=== PATIENT | male | born 1945 | race Caucasian/White ===

== ENCOUNTER → 2016-02-20 | Outpatient (CLI) | payer OTHER ==
[~2016-02-20] MED LIST: ASPIR LOW81 MG PO; ASPIRIN ADULT L81 MG PO; ASPIRIN325 M2 PO; CIPRO500 MG PO; D-1000 185 MG-11 TAB PO; FLAGYL500 MG PO; FLOMAX0.4 MG PO; LISINOPRIL10 M1 PO; LISINOPRIL40 MG PO; LOPRESSOR25 MG PO; METFORMIN850 MG PO; METOPROLOL TART50 M1 PO; ZOCOR40 MG PO
== END | disposition home or self-care (01) ==
LOC: CT 10:47
DX: L97.529 Non-pressure chronic ulcer of other part of left foot with unspecified severity (principal); M19.072 Primary osteoarthritis, left ankle and foot; M79.89 Other specified soft tissue disorders

== ENCOUNTER → 2016-05-18 | Day surgery (SDC) | payer OTHER ==
[2016-05-14 11:23] LABS: INTERNATIONAL NORM RATIO 0.9 (2.0-3.5); PROTHROMBIN TIME 9.8 SECONDS (9.0-12.4)
[2016-05-18] VITALS (7 sets, daily range): BP systolic 132–161; BP diastolic 60–84
[~2016-05-18] VITALS: Ht 180.3 cm; Wt 97.5 kg
[~2016-05-18] MED LIST changes: +DOXYCYCLINE100 MG PO; +NORCO 5-325 TA1 EACH PO
--- NOTE | ~2016-05-18 | O ---
[place], [place] OPERATIVE NOTE NAME: DESMONDJOSERASHAWN UNIT #: [id number] ROOM: DOCTOR: MELITON PEACE III, DPM BIRTHDATE: [birth year] DOS: 05/18/2016 SURGEON: Meliton Peace DPM ANESTHESIA: General. TAPE RECORDER MECHANIC: Chadwick Anguiano DPM PREOPERATIVE DIAGNOSES: 1. Equinus contracture, left leg. 2. Hammertoe contracture, left third digit. 3. Joint contracture, left third digit. POSTOPERATIVE DIAGNOSES: 1. Equinus contracture, left leg. 2. Hammertoe contracture, left third digit. 3. Joint contracture, left third digit. PROCEDURES: 1. Open gastrocnemius recession, left. 2. PIPJ arthroplasty, left third digit. 3. Extensor tenotomy, left third digit. HEMOSTASIS: Thigh tourniquet was in place at 300 mmHg. Please refer to nursing note for total time of inflation. ESTIMATED BLOOD LOSS: None. MATERIALS: One 0.62 K-wire. INJECTABLES: Approximately 30 mL of 0.5% Marcaine plain was injected in a local infiltrative ankle block type at the conclusion of the case as well as a proximal block above the level of the gastroc aponeurosis. FINDINGS: Consistent with preoperative diagnoses. COMPLICATIONS: None. HISTORY OF PRESENT ILLNESS: This is a 70-year-old male who was referred to me for surgical consultation for a recurrent ulceration sub left third metatarsal head. The patient is diabetic. The patient did have the clearance prior to surgery from medical standpoint. We discussed the options with the patient preoperatively. The patient continued to ulcerate off and on underneath the third metatarsal head of his left foot. We have tried offloading measures on the walking boot as well as diabetic shoes and inserts, and again the patient's underlying deformity needed to be addressed. We discussed the conservative as well as surgical treatment options with the patient. After discussion of the options, the patient wished to move forward with surgery. The patient did have a gastroc equinus as well as a hammertoe of his left third digit that was causing retrograde buckling and increased pressure underneath the third [place], [place] OPERATIVE NOTE NAME: AJITHRASHAWN UNIT #: [id number] ROOM: DOCTOR: NATA SIDDIQUI DPMMELITON BIRTHDATE: [birth year] metatarsal head. We discussed the options with the patient. I discussed gastroc release as well as hammertoe correction which I feel would be help alleviate his pain as well as recurrent ulceration to this area. The patient was in agreement. All risks, benefits, complications, procedures, alternatives were discussed and all questions were answered to his apparent satisfaction. The pre, james, postoperative course was discussed as well. The patient could not have an MRI preoperatively, therefore a CT was ordered which did not show any signs of osteomyelitis. He also had preoperative blood work which did not show any signs of elevated inflammatory markers. He also had preoperative vascular studies which showed adequate flow for healing to the left foot. PHYSICAL EXAMINATION: VASCULAR: DP and PT pulses were barely palpable, CFT was within normal limits, minimal edema. DERMATOLOGY: The patient had a healed ulceration in sub-third metatarsal head of the left foot. No signs of infection or inflammation. He had some localized bursitis appreciated at the dorsal PIPJ of his left third digit, where a hammertoe contracture was appreciated. NEUROLOGY: Decreased protective sensation. ORTHOPEDIC: The patient has a prominent third metatarsal head to the left foot, which appears to be secondary to retrograde buckling of his left third digit hammertoe contracture. He also has an equinus contracture appreciated as well. Also has extensor tendon to the left third digit appears to be taut as well. PROCEDURE IN DETAIL: The patient was brought to the operating room and laid on the table in supine position. His foot was prepped and draped in the usual sterile fashion. Pneumatic compression device was placed on the contralateral limb for DVT prophylaxis. Preoperative antibiotics were administered per hospital protocol. My attention was directed to the posterior medial aspect of his left leg, where a 4 cm incision was outlined overlying the gastroc aponeurosis. This was at a point jail between the distance of the proximal extent of Kager triangle and the medial head of the gastrocnemius. This led to junction of the medial and posterior thirds of the leg. A skin incision was created and dissection was carried through the skin as well as subcutaneous tissue with both sharp as well as blunt dissection. [employer] retractors were used to separate soft tissues, so that the paratenon could be adequately visualized. With all neurovascular structures retracted, a linear incision was created through the paratenon exposing the gastroc aponeurosis. At this time, we then proceeded to perform a transverse incision through the gastroc aponeurosis. Full release was performed as gentle dorsiflexion was placed at the level of the ankle. At this time, we then proceeded to close the paratenon with 0 Vicryl followed by subcutaneous closure with 0 Vicryl and skin closure with 3-0 Prolene. At this time, we then directed our attention to the left third digit, where again a contracture was appreciated at the level of the proximal interphalangeal joint. The extensor tendon to the left third digit appeared to be taut and at the level of metatarsophalangeal joint, a percutaneous tenotomy was performed of the tendon as well as of the capsule of the metatarsophalangeal joint in a percutaneous manner. The digit appeared to be in more of a rectus alignment; however, there [place], [place] OPERATIVE NOTE NAME: RASHAWN CANSECO UNIT #: [id number] ROOM: DOCTOR: MELITON PEACE III, DPM BIRTHDATE: [birth year] still appeared to have a contracture at the level of the proximal interphalangeal joint. At this time, we then made a double elliptical incision around the proximal interphalangeal joint. Skin was excised exposing the capsule as well as the tendon at the level of the proximal interphalangeal joint, a transverse incision was made through the tendon reflecting this both distally as well as proximally exposing the capsule. At this time, we then performed a capsulotomy of the proximal interphalangeal joint exposing the cartilage of the PIPJ. At this time, using a bone cutting forceps, the head of the proximal phalanx was removed and sent for biopsy. At this time, we then proceeded to place a K-wire down the length of the digit, traction in both distal interphalangeal joint as well as proximal interphalangeal joint. We felt then it was in the basis of best interest to pin across the MTPJ for added stability and to allow for appropriate healing and prevention of his ulceration a alf. Therefore, the pin was extended almost to the base of the third metatarsal. Proper position was confirmed in a triplane fluoroscopy. At this time, we then proceeded to reapproximate the extensor tendon at the level of the proximal interphalangeal joint with 2-0 Vicryl followed by skin closure with 4-0 Prolene. Prior to application of his dressing, an approximately 30 mL of 0.5% Marcaine plain was injected in a local ankle block type fashion as well as in a proximal fashion above the level of the gastrocnemius release. Tourniquet was deflated and normal capillary refill time returned to all digits. The patient tolerated the procedure well. A well-padded surgical dressing was then applied. The patient left the operating room with neurovascular status intact and vital signs stable. Prognosis for healing is good. We will follow up in the office next week. He will be discharged to home with an antibiotic as well as pain medication. We will also restart his aspirin therapy for DVT prophylaxis. MELITON PEACE III, DPM CM:OPRECORD:OPERATIVE NOTE 1000 [id number] MELITON PEACE III, DPM 05/26/16 1318 interface
== END | disposition home or self-care (01) ==
LOC: SDC 05-11 11:00
PROVIDERS: Podiatrist Foot & Ankle Surgery
DX: M21.6X2 Other acquired deformities of left foot (principal); M20.42 Other hammer toe(s) (acquired), left foot; M24.575 Contracture, left foot; I10 Essential (primary) hypertension; E11.9 Type 2 diabetes mellitus without complications; Z86.73 Personal history of transient ischemic attack (TIA), and cerebral infarction without residual deficits; I34.1 Nonrheumatic mitral (valve) prolapse; I25.10 Atherosclerotic heart disease of native coronary artery without angina pectoris; I50.42 Chronic combined systolic (congestive) and diastolic (congestive) heart failure; Z95.0 Presence of cardiac pacemaker; Z82.3 Family history of stroke; Z80.9 Family history of malignant neoplasm, unspecified; Z96.653 Presence of artificial knee joint, bilateral; Z87.891 Personal history of nicotine dependence; E78.2 Mixed hyperlipidemia

== ENCOUNTER 2016-06-16 15:54 | Inpatient (IN) | payer OTHER ==
[~2016-06-16] VITALS: Ht 180.3 cm; Wt 92.8 kg
[2016-06-16 15:57] VITALS: BP 153/90
[2016-06-16 16:23] LABS: BASO % 0.5 % (0.0-1.0); EOS # 0.2 10*3/uL (0.0-0.4); HEMATOCRIT 40.1 % (42.0-52.0); LYMPH # 1.7 10*3/uL (1.3-4.4); LYMPH % 22.7 % (27.0-41.0); MEAN CELL VOLUME 93.7 fl (80.0-94.0); MEAN CORPUSCULAR HGB 32.7 pg (27.0-31.0); MEAN CORPUSCULAR HGB CONC 34.9 g/dl (33.0-37.0); MEAN PLATELET VOLUME 10.3 fl (9.6-12.3); MONO # 0.6 10*3/uL (0.1-1.0); MONO % 7.8 % (3.0-9.0); NEUT # 5.1 10*3/uL (2.3-7.9); NEUT % 66.5 % (47.0-73.0); PLATELET COUNT AUTOMATED 207 10*3/uL (130-400); RED BLOOD COUNT 4.28 10*6/uL (4.50-5.90); RED CELL DISTRI WIDTH 13.6 % (0-14.5); WHITE BLOOD COUNT 7.7 10*3/uL (4.8-10.8)
[2016-06-16 16:33] LABS: PROTHROMBIN TIME 10.2 SECONDS (9.0-12.4)
[2016-06-16 16:38] LABS: ALBUMIN 3.8 gm/dl (3.1-4.5); ALKALINE PHOSPHATASE 85 U/L (45-117); BILIRUBIN, TOTAL 0.5 mg/dl (0.2-1.0); BUN 13 mg/dl (7-24); CARBON DIOXIDE 24 mmol/L (21-32); CHLORIDE 102 mmol/L (98-107); CPK 151 U/L (39-308); EST GLOM FILT AFRICAN AMERICAN > 60 ml/min; GLUCOSE 153 mg/dL (65-99); POTASSIUM 4.2 mmol/L (3.5-5.1); SGOT/AST 26 IU/L (3-35); SGPT/ALT 32 U/L (12-78); SODIUM 141 mmol/L (136-145); TOTAL PROTEIN 7.3 gm/dL (6.4-8.2)
[2016-06-16 16:40] LABS: C-REACTIVE PROTEIN < 0.29 MG/DL (0-0.3); TROPONIN I < 0.015 ng/ml (<0.045)
[2016-06-16 17:45] VITALS: BP 125/89
[2016-06-16 18:10] LABS: CKMB 2.8 ng/ml (0.5-3.6); CPK 145 U/L (39-308)
[2016-06-16 18:11] LABS: TROPONIN I < 0.015 ng/ml (<0.045)
[2016-06-16 19:00] VITALS: BP 145/73
[2016-06-16 20:00] VITALS: BP 152/72
[2016-06-17 00:21] VITALS: BP 126/69
[2016-06-17 00:39] LABS: CKMB 2.7 ng/ml (0.5-3.6); CPK 142 U/L (39-308)
[2016-06-17 00:40] LABS: TROPONIN I < 0.015 ng/ml (<0.045)
[2016-06-17 05:58] LABS: BASO % 0.7 % (0.0-1.0); EOS # 0.2 10*3/uL (0.0-0.4); EOS % 4.1 % (1.0-4.0); HEMATOCRIT 38.9 % (42.0-52.0); LYMPH # 2.1 10*3/uL (1.3-4.4); LYMPH % 35.5 % (27.0-41.0); MEAN CELL VOLUME 95.8 fl (80.0-94.0); MEAN CORPUSCULAR HGB CONC 33.4 g/dl (33.0-37.0); MEAN PLATELET VOLUME 10.4 fl (9.6-12.3); MONO # 0.5 10*3/uL (0.1-1.0); MONO % 8.7 % (3.0-9.0); NEUT # 2.9 10*3/uL (2.3-7.9); NEUT % 50.3 % (47.0-73.0); PLATELET COUNT AUTOMATED 178 10*3/uL (130-400); RED BLOOD COUNT 4.06 10*6/uL (4.50-5.90); RED CELL DISTRI WIDTH 13.7 % (0-14.5); WHITE BLOOD COUNT 5.8 10*3/uL (4.8-10.8)
[2016-06-17 06:09] LABS: CKMB 2.5 ng/ml (0.5-3.6); CPK 132 U/L (39-308)
[2016-06-17 06:22] LABS: TROPONIN I < 0.015 ng/ml (<0.045)
[2016-06-17 06:28] LABS: BUN 14 mg/dl (7-24); CARBON DIOXIDE 27 mmol/L (21-32); CHLORIDE 106 mmol/L (98-107); EST GLOM FILT AFRICAN AMERICAN > 60 ml/min; GLUCOSE 127 mg/dL (65-99); MAGNESIUM 2.2 mg/dL (1.5-2.1); POTASSIUM 4.5 mmol/L (3.5-5.1); SODIUM 141 mmol/L (136-145)
[2016-06-17 06:47] LABS: PROTHROMBIN TIME 10.4 SECONDS (9.0-12.4)
[2016-06-17 08:00] VITALS: BP 132/70
== END 2016-06-17 13:46 | disposition home or self-care (01) | DRG 312 ==
LOC: ED 15:54 → EDHOLD 17:20 → 5E 17:46
PROVIDERS: Family Medicine; Student in an Organized Health Care Education/Training Program
DX: I95.1 Orthostatic hypotension (principal); I50.42 Chronic combined systolic (congestive) and diastolic (congestive) heart failure; I11.0 Hypertensive heart disease with heart failure; E11.9 Type 2 diabetes mellitus without complications; I25.10 Atherosclerotic heart disease of native coronary artery without angina pectoris; R00.0 Tachycardia, unspecified; E66.9 Obesity, unspecified; E78.5 Hyperlipidemia, unspecified; Z96.653 Presence of artificial knee joint, bilateral; Z87.891 Personal history of nicotine dependence; Z79.84 Long term (current) use of oral hypoglycemic drugs; Z79.82 Long term (current) use of aspirin; Z79.899 Other long term (current) drug therapy; Z86.73 Personal history of transient ischemic attack (TIA), and cerebral infarction without residual deficits; Z68.29 Body mass index [BMI] 29.0-29.9, adult; Z90.49 Acquired absence of other specified parts of digestive tract; Z95.0 Presence of cardiac pacemaker; Z80.42 Family history of malignant neoplasm of prostate; Z82.3 Family history of stroke

== ENCOUNTER → 2017-11-12 | Outpatient (CLI) | payer OTHER ==
[~2017-11-12] MED LIST changes: -ASPIRIN ADULT L81 MG PO; +ASPIRIN325 MG PO; +FINASTERIDE5 M1 PO; +GLIPIZIDE5 MG PO; +METOPROLOL25 MG PO; +ZESTRIL20 MG PO
== END | disposition home or self-care (01) ==
LOC: LAB 10:50
DX: R97.20 Elevated prostate specific antigen [PSA] (principal)

== ENCOUNTER → 2018-01-17 | Outpatient (CLI) | payer OTHER | END | disposition home or self-care (01) | LOC: LAB 10:37 | DX: R97.20 Elevated prostate specific antigen [PSA] (principal) ==

== ENCOUNTER → 2018-07-17 | Outpatient (CLI) | payer OTHER | END | disposition home or self-care (01) | LOC: LAB 10:04 | DX: R97.20 Elevated prostate specific antigen [PSA] (principal) ==

== ENCOUNTER → 2019-03-04 | Outpatient (CLI) | payer MEDICARE ==
[~2019-03-04] MED LIST changes: +METFORMIN HYD1000 MG PO; +ONE-TABLET-DAI1 EACH PO; +VITAMIN D325 MCG PO
== END | disposition home or self-care (01) ==
LOC: LAB 08:53
DX: R97.20 Elevated prostate specific antigen [PSA] (principal)

== ENCOUNTER 2019-03-23 17:15 | Inpatient (IN) | payer MEDICARE ==
[~2019-03-23] VITALS: Ht 180.3 cm; Wt 94.1 kg
[~2019-03-23 17:15] MED LIST changes: -METFORMIN HYD1000 MG PO; -ONE-TABLET-DAI1 EACH PO; -VITAMIN D325 MCG PO
[2019-03-23 17:18] VITALS: BP 182/81
[2019-03-23 17:35] LABS: BASO % 0.4 % (0.0-1.0); EOS # 0.3 10*3/uL (0.0-0.4); EOS % 3.3 % (1.0-4.0); HEMATOCRIT 42.4 % (42.0-52.0); HEMOGLOBIN 14.3 g/dl (14.0-18.0); LYMPH # 2.1 10*3/uL (1.3-4.4); LYMPH % 27.5 % (27.0-41.0); MEAN CORPUSCULAR HGB 33.7 pg (27.0-31.0); MEAN CORPUSCULAR HGB CONC 33.7 g/dl (33.0-37.0); MEAN PLATELET VOLUME 10.6 fl (9.6-12.3); MONO # 0.6 10*3/uL (0.1-1.0); MONO % 8.6 % (3.0-9.0); NEUT # 4.5 10*3/uL (2.3-7.9); NEUT % 59.7 % (47.0-73.0); PLATELET COUNT AUTOMATED 236 10*3/uL (130-400); RED BLOOD COUNT 4.24 10*6/uL (4.50-5.90); RED CELL DISTRI WIDTH 13.6 % (0-14.5); WHITE BLOOD COUNT 7.5 10*3/uL (4.8-10.8)
[2019-03-23 17:45] LABS: ACT PARTIAL THROMBO TIME 27.3 SECONDS (20.0-32.1); INTERNATIONAL NORM RATIO 0.9 (2.0-3.5)
[2019-03-23 17:52] LABS: ALBUMIN 4.2 gm/dl (3.1-4.5); ALKALINE PHOSPHATASE 69 U/L (45-117); BUN 16 mg/dl (7-24); CHLORIDE 104 mmol/L (98-107); CREATININE 1.16 mg/dL (0.70-1.30); SGOT/AST 23 IU/L (3-35); SGPT/ALT 33 U/L (12-78); SODIUM 138 mmol/L (136-145); TOTAL PROTEIN 7.8 gm/dL (6.4-8.2)
[2019-03-23 18:06] LABS: TROPONIN I < 0.015 ng/ml (<0.045)
[2019-03-23 18:30] VITALS: BP 162/60
[2019-03-23 19:29] VITALS: BP 140/76
[2019-03-23 20:26] VITALS: BP 147/73
--- NOTE | 2019-03-23 21:56 | NUR ---
REPORT FROM PRIYA AT THIS TIME
--- NOTE | 2019-03-23 22:30 | NUR ---
A 73, admitted to , under the services of MINA Chen DO with a diagnosis of CHEST PAIN. Chief complaint is CHEST PAIN. Patient arrived via stretcher from ER. Monitor applied. Initial assessment completed. Vital signs taken and recorded. MINA CHEN DO notified of admission to the unit. Orders received. See assessment for past medical history, medications and allergies. Patient and/or family oriented to unit. [facility] visitation policy reviewed. Clothing/patient valuable form completed. CALEB TAM
[2019-03-23] MEDS ORDERED: METFORMIN HYD1000 MG PO (22:47)
[2019-03-23] MEDS ORDERED: VITAMIN D325 MCG PO (22:49)
[2019-03-23] MEDS ORDERED: ONE-TABLET-DAI1 EACH PO (22:50)
--- NOTE | 2019-03-23 22:50 | NUR ---
MED REC COMPLETED WITH PATIENT ALERT AND ORIENTED TO PERSON PLACE AND TIME
--- NOTE | 2019-03-23 22:53 | NUR ---
DR BRIONES AWARE OF ORTHOS, MED REC BEING UP TO DATE, AND PATIENT WANTING TO BE A FULL CODE.
--- NOTE | 2019-03-23 22:58 | NUR ---
ORTHOS- SUPINE- 177/79 HR 60 SITTING- 161/85 HR 60 STANDING- 180/96 HR 81 PATIENT SYMPTOMATIC
[2019-03-23 23:00] VITALS: BP 177/79
--- NOTE | 2019-03-23 23:24 | NUR ---
DR VILLALOBOS ANSWERING SERVICE AWARE OF CONSULT
[2019-03-24] VITALS: BP 138/87
--- NOTE | 2019-03-24 04:35 | NUR ---
DR TOLBERT AWARE OF PATIENT C/O PRESSURE AND UNABLE TO URINATE. BLADDER SCANNED FOR >947 CC. STATES TO STRAIGHT CATH PATIENT
--- NOTE | 2019-03-24 04:52 | NUR ---
PATIENT STRAIGHT CATHED FOR 1,000 CC OF CLEAR YELLOW URINE. PATIENT VERBALIZED RELIEF OF PRESSURE. PATIENT TOLERATED WELL.
[2019-03-24 07:18] LABS: BASO % 0.6 % (0.0-1.0); EOS # 0.2 10*3/uL (0.0-0.4); HEMATOCRIT 40.1 % (42.0-52.0); HEMOGLOBIN 13.3 g/dl (14.0-18.0); LYMPH # 1.6 10*3/uL (1.3-4.4); LYMPH % 21.6 % (27.0-41.0); MEAN CELL VOLUME 99.5 fl (80.0-94.0); MEAN CORPUSCULAR HGB CONC 33.2 g/dl (33.0-37.0); MEAN PLATELET VOLUME 10.3 fl (9.6-12.3); MONO # 0.6 10*3/uL (0.1-1.0); MONO % 8.4 % (3.0-9.0); NEUT # 4.8 10*3/uL (2.3-7.9); PLATELET COUNT AUTOMATED 197 10*3/uL (130-400); RED BLOOD COUNT 4.03 10*6/uL (4.50-5.90); RED CELL DISTRI WIDTH 13.5 % (0-14.5); WHITE BLOOD COUNT 7.2 10*3/uL (4.8-10.8)
[2019-03-24 07:48] LABS: BUN 14 mg/dl (7-24); CHLORIDE 106 mmol/L (98-107); CHOLESTEROL 160 mg/dL (<200); CREATININE 0.99 mg/dL (0.70-1.30); HDL CHOLESTEROL 48 mg/dl (40-60); LDL CHOLESTEROL 84 mg/dL (9-159); POTASSIUM 4.2 mmol/L (3.5-5.1); SODIUM 139 mmol/L (136-145); TRIGLYCERIDES 139 mg/dl (<150); VLDL CHOLESTEROL 28 mg/dL (6-40)
[2019-03-24 08:00] VITALS: BP 130/68
[2019-03-24 08:13] LABS: VITAMIN D, 25-HYDROXY 50.6 ng/mL (30-100)
--- NOTE | 2019-03-24 09:00 | NUR ---
Marine Geologist in to talk to patient. Patient states lives at home with . There are 4 steps in the home. Physician: bulmaro gonsalez [facility]acy: [facility] Home health services: none Patient's level of ADLs: INDEPENDENT Patient has working utilities: all working DME: none Follow-up physician's appointment after d/c: will be made by hospitalist nurse director upon discharge Does patient want to access PORTAL?: no Discharge plan discussed with patient, he states she lives at home with his , he is independent in adls and ambulation, drives, he states he will return home when medically stable and denies any home needs, case management will follow. KEVIN MORALES
--- NOTE | 2019-03-24 10:52 | NUR ---
Nutritional Support Services Note: Met w/ pt and pt's . 1800 marcia diet copy given. Educated on the importance of eating 3 meals/d plus a night time snack. is very supportive and helpful. They watch their sugar intake, buy SF jello, and try not to eat many pastries. Pt stated that his appetite was fair. Encourage adequate nutrition. Will follow if needed. Ekta Zaldivar, [employer] transportation logistics internship
[2019-03-24 12:00] VITALS: BP 139/71
[2019-03-24 16:00] VITALS: BP 158/75
--- NOTE | 2019-03-24 16:30 | NUR ---
BGM 152, PT ROUTINELY REFUSES COVERAGE PER SLIDING SCALE.RESPS EASY ON RA. VOICES NO C/O AT THIS TIME. CALL LIGHT6 IN REACH.
[2019-03-24 20:00] VITALS: BP 126/80
[2019-03-25] VITALS: BP 122/69
--- NOTE | 2019-03-25 09:00 | NUR ---
case management visits with patient, he will return home when medically stable and denies any home needs, case management will follow, patient is scheduled for a stress test today
--- NOTE | 2019-03-25 09:30 | NUR ---
INFORMED CONSENT OBTAINED FOR LEXISCAN NUCLEAR STRESS TEST WITH DR. CASTAÑEDA. RESTING EKG PACED WITH A RESTING HR OF 64 WITH BP OF 142/78. LUNGS CLEAR WITH SPO2 OF 98% ON ROOM AIR. PT COMPLETED A 1:00 LEXISCAN PROTOCOL RECEIVING LEXISCAN 0.4 MG IV OVER 10 SECONDS. HAD NO CHEST PAIN OR ANY DISCOMFORTS. EKG NONDIAGNOSTIC WITH PACED RHYTHM. HAD A PEAK HR OF 94 WITH BP OF 118/60. LAST RECOVERY HR OF 86 WITH BP OF 134/72. AWAITING SCANNING IN STABLE CONDITIOIN.
[2019-03-25 12:00] VITALS: BP 132/77
--- NOTE | 2019-03-25 14:47 | NUR ---
Discharge instructions reviewed with patient/family. Patient receptive and verbalizes understanding. Follow-up care arranged. Written instructions given to patient/family. AUGUSTINA BARRY
== END 2019-03-25 15:42 | disposition home or self-care (01) | DRG 392 ==
LOC: ED 17:15 → 4E 20:31 → EDHOLD 20:31 → 4E 21:07
PROVIDERS: Emergency Medicine; Student in an Organized Health Care Education/Training Program; ADMIT Internal Medicine
PROC: 3E073KZ Introduction of Other Diagnostic Substance into Coronary Artery, Percutaneous Approach (ICD-10-PCS; principal; 2019-03-25)
PROC: 4A02XM4 Measurement of Cardiac Total Activity, External Approach (ICD-10-PCS; principal; 2019-03-25)
DX: K21.9 Gastro-esophageal reflux disease without esophagitis (principal); I24.9 Acute ischemic heart disease, unspecified; I50.42 Chronic combined systolic (congestive) and diastolic (congestive) heart failure; R55 Syncope and collapse; E78.5 Hyperlipidemia, unspecified; I25.10 Atherosclerotic heart disease of native coronary artery without angina pectoris; I11.0 Hypertensive heart disease with heart failure; E11.65 Type 2 diabetes mellitus with hyperglycemia; D53.9 Nutritional anemia, unspecified; Z96.653 Presence of artificial knee joint, bilateral; Z95.0 Presence of cardiac pacemaker; Z86.73 Personal history of transient ischemic attack (TIA), and cerebral infarction without residual deficits; Z87.891 Personal history of nicotine dependence; Z90.49 Acquired absence of other specified parts of digestive tract; Z82.3 Family history of stroke; Z80.42 Family history of malignant neoplasm of prostate; Z82.49 Family history of ischemic heart disease and other diseases of the circulatory system; Z79.899 Other long term (current) drug therapy

== ENCOUNTER → 2019-10-04 | Emergency (ER) | payer MEDICARE ==
[~2019-10-04] VITALS: Ht 180.3 cm; Wt 90.7 kg
[~2019-10-04] MED LIST changes: +METFORMIN HYD1000 MG PO; +ONE-TABLET-DAI1 EACH PO; +VITAMIN D325 MCG PO
[2019-10-04 13:16] LABS: BASO % 0.6 % (0.0-1.0); EOS # 0.3 10*3/uL (0.0-0.4); EOS % 4.8 % (1.0-4.0); HEMATOCRIT 39.2 % (42.0-52.0); LYMPH # 1.6 10*3/uL (1.3-4.4); LYMPH % 24.8 % (27.0-41.0); MEAN CELL VOLUME 98.5 fl (80.0-94.0); MEAN CORPUSCULAR HGB 32.7 pg (27.0-31.0); MEAN CORPUSCULAR HGB CONC 33.2 g/dl (33.0-37.0); MEAN PLATELET VOLUME 10.1 fl (9.6-12.3); MONO # 0.7 10*3/uL (0.1-1.0); NEUT # 3.8 10*3/uL (2.3-7.9); NEUT % 58.3 % (47.0-73.0); PLATELET COUNT AUTOMATED 195 10*3/uL (130-400); RED BLOOD COUNT 3.98 10*6/uL (4.50-5.90); RED CELL DISTRI WIDTH 13.4 % (0-14.5); WHITE BLOOD COUNT 6.5 10*3/uL (4.8-10.8)
[2019-10-04 13:32] LABS: ALBUMIN 3.8 gm/dl (3.1-4.5); ALKALINE PHOSPHATASE 62 U/L (45-117); BUN 15 mg/dl (7-24); CHLORIDE 107 mmol/L (98-107); CREATININE 1.02 mg/dL (0.70-1.30); POTASSIUM 5.1 mmol/L (3.5-5.1); SGOT/AST 17 IU/L (3-35); SGPT/ALT 27 U/L (12-78); SODIUM 137 mmol/L (136-145); TOTAL PROTEIN 7.3 gm/dL (6.4-8.2)
== END ==
LOC: ED 12:26
PROVIDERS: Emergency Medicine
DX: R20.0 Anesthesia of skin (principal); I10 Essential (primary) hypertension; E11.9 Type 2 diabetes mellitus without complications; Z79.899 Other long term (current) drug therapy; Z90.49 Acquired absence of other specified parts of digestive tract; Z86.73 Personal history of transient ischemic attack (TIA), and cerebral infarction without residual deficits

== ENCOUNTER → 2019-10-08 | Outpatient (CLI) | payer MEDICARE | END | disposition home or self-care (01) | LOC: LAB 12:46 | PROVIDERS: ATTEND Urology | DX: R97.20 Elevated prostate specific antigen [PSA] (principal) ==

== ENCOUNTER 2019-12-25 19:47 | Emergency (ER) | payer MEDICARE ==
[~2019-12-25] VITALS: Ht 180.3 cm; Wt 99.8 kg
== END 2019-12-25 21:09 | disposition home or self-care (01) ==
LOC: ED 19:47
DX: R42 Dizziness and giddiness (principal); I10 Essential (primary) hypertension; Z79.899 Other long term (current) drug therapy; Z79.82 Long term (current) use of aspirin

== ENCOUNTER → 2020-01-11 | Outpatient (CLI) | payer MEDICARE | END | disposition home or self-care (01) | LOC: LAB 09:23 | PROVIDERS: ATTEND Urology | DX: R97.20 Elevated prostate specific antigen [PSA] (principal) ==

== ENCOUNTER → 2020-02-19 | Outpatient (CLI) | payer MEDICARE | END | disposition home or self-care (01) | LOC: COVID19 14:52 | PROVIDERS: ATTEND Student in an Organized Health Care Education/Training Program | DX: U07.1 COVID-19 (principal) ==

== ENCOUNTER 2020-09-05 19:44 | Emergency (ER) | payer OTHER, MEDICARE ==
[~2020-09-05] VITALS: Wt 95.3 kg
[2020-09-05] MEDS ORDERED: METHOCARBAMOL500 M1 PO (20:30)
[2020-09-05] MEDS ORDERED: NAPROXEN250 MG PO (20:30)
== END 2020-09-05 20:47 | disposition home or self-care (01) ==
LOC: ED 19:44
DX: S16.1XXA Strain of muscle, fascia and tendon at neck level, initial encounter (principal); S29.012A Strain of muscle and tendon of back wall of thorax, initial encounter; Z95.0 Presence of cardiac pacemaker; Z79.899 Other long term (current) drug therapy; Z79.82 Long term (current) use of aspirin; Z98.890 Other specified postprocedural states; Z96.653 Presence of artificial knee joint, bilateral; Z87.891 Personal history of nicotine dependence; V89.2XXA Person injured in unspecified motor-vehicle accident, traffic, initial encounter; Y93.I9 Activity, other involving external motion; Y92.488 Other paved roadways as the place of occurrence of the external cause; Y99.8 Other external cause status

== ENCOUNTER → 2020-12-15 | Outpatient (CLI) | payer MEDICARE ==
[~2020-12-15] MED LIST changes: +METHOCARBAMOL500 M1 PO; +NAPROXEN250 MG PO
== END | disposition home or self-care (01) ==
LOC: RAD 14:58
PROVIDERS: ATTEND Family Medicine
DX: M25.461 Effusion, right knee (principal); M51.37 Other intervertebral disc degeneration, lumbosacral region; D18.09 Hemangioma of other sites; Z96.651 Presence of right artificial knee joint

== ENCOUNTER → 2021-05-08 | Outpatient (CLI) | payer MEDICARE | END | disposition home or self-care (01) | LOC: LAB 09:24 | PROVIDERS: ATTEND Urology | DX: C61 Malignant neoplasm of prostate (principal) ==

== ENCOUNTER → 2021-08-16 | Day surgery (SDC) | payer MEDICARE ==
[~2021-08-16] VITALS: Ht 180.3 cm; Wt 90.7 kg
[~2021-08-16] MED LIST changes: +ASPIRIN ADULT L81 M1 PO; +CHEMO
[2021-08-16 06:45] VITALS: BP 146/84
[2021-08-16 08:08] VITALS: BP 138/83
[2021-08-16 08:22] VITALS: BP 134/79
[2021-08-16 08:37] VITALS: BP 136/78
== END | disposition home or self-care (01) ==
LOC: SDC 08-11 08:00
PROVIDERS: ATTEND Ophthalmology
DX: E11.36 Type 2 diabetes mellitus with diabetic cataract (principal); H25.812 Combined forms of age-related cataract, left eye; I11.0 Hypertensive heart disease with heart failure; I50.9 Heart failure, unspecified; Z85.46 Personal history of malignant neoplasm of prostate; Z86.73 Personal history of transient ischemic attack (TIA), and cerebral infarction without residual deficits; Z95.0 Presence of cardiac pacemaker; Z96.653 Presence of artificial knee joint, bilateral; Z98.890 Other specified postprocedural states; Z79.899 Other long term (current) drug therapy

== ENCOUNTER → 2021-08-21 | Outpatient (CLI) | payer MEDICARE | LOC: LAB 08:47 | PROVIDERS: ATTEND Urology | DX: C61 Malignant neoplasm of prostate (principal) ==

== ENCOUNTER 2021-09-08 23:30 | Emergency (ER) | payer MEDICARE ==
[~2021-09-08] VITALS: Ht 180.3 cm; Wt 87.1 kg
[2021-09-09 00:38] LABS: BILIRUBIN Negative (Negative); BLOOD 2+ (Negative); CLARITY Turbid (Clear); COLOR Yellow (Yellow); GLUCOSE Negative (Negative); KETONE Negative (Negative); LEUKO ESTERASE 3+ (Negative); NITRITE Negative (Negative); PH 5.5 (4.5-8.0); SPECIFIC GRAVITY 1.015 (1.001-1.030); UROBILINOGEN 0.2 E.U./dl (0.0-1.0)
[2021-09-09 00:52] LABS: BACTERIA 3+; RBC 16-20 rbc/hpf (0-2); WBC TNTC wbc/hpf (0-5)
[2021-09-09] MEDS ORDERED: PYRIDIUM200 M1 PO (01:28)
[2021-09-09] MEDS ORDERED: CIPRO500 MG PO (01:28)
== END 2021-09-09 01:45 | disposition home or self-care (01) ==
LOC: ED 23:30
PROVIDERS: Emergency Medicine
DX: N39.0 Urinary tract infection, site not specified (principal); R31.9 Hematuria, unspecified; Z79.899 Other long term (current) drug therapy; Z79.82 Long term (current) use of aspirin; Z90.49 Acquired absence of other specified parts of digestive tract; Z98.890 Other specified postprocedural states; Z96.653 Presence of artificial knee joint, bilateral; Z95.0 Presence of cardiac pacemaker; Z87.891 Personal history of nicotine dependence

== ENCOUNTER 2021-09-09 15:10 | Emergency (ER) | payer OTHER ==
[~2021-09-09] VITALS: Ht 180.3 cm; Wt 87.1 kg
[~2021-09-09 15:10] MED LIST changes: +PYRIDIUM200 M1 PO
[2021-09-09 15:41] LABS: BASO % 0.3 % (0.0-1.0); EOS # 0.3 10*3/uL (0.0-0.4); EOS % 4.6 % (1.0-4.0); HEMATOCRIT 28.6 % (42.0-52.0); LYMPH # 0.7 10*3/uL (1.3-4.4); LYMPH % 9.6 % (27.0-41.0); MEAN CELL VOLUME 93.8 fl (80.0-94.0); MEAN CORPUSCULAR HGB 29.5 pg (27.0-31.0); MEAN CORPUSCULAR HGB CONC 31.5 g/dl (33.0-37.0); MEAN PLATELET VOLUME 9.5 fl (9.6-12.3); MONO # 0.9 10*3/uL (0.1-1.0); MONO % 12.4 % (3.0-9.0); NEUT % 71.1 % (47.0-73.0); PLATELET COUNT AUTOMATED 341 10*3/uL (130-400); RED BLOOD COUNT 3.05 10*6/uL (4.50-5.90); RED CELL DISTRI WIDTH 15.9 % (0-14.5)
[2021-09-09 16:02] LABS: ACT PARTIAL THROMBO TIME 28.6 SECONDS (20.0-32.1)
[2021-09-09 16:07] LABS: ALKALINE PHOSPHATASE 115 U/L (45-117); BUN 29 mg/dl (7-24); CHLORIDE 108 mmol/L (98-107); CREATININE 1.27 mg/dL (0.70-1.30); POTASSIUM 4.7 mmol/L (3.5-5.1); SGOT/AST 17 IU/L (3-35); SGPT/ALT 21 U/L (12-78); SODIUM 135 mmol/L (136-145); TOTAL PROTEIN 6.9 gm/dL (6.4-8.2)
== END 2021-09-09 19:33 | disposition home or self-care (01) ==
LOC: ED 15:10
PROVIDERS: Emergency Medicine
DX: N39.0 Urinary tract infection, site not specified (principal); I25.10 Atherosclerotic heart disease of native coronary artery without angina pectoris; I10 Essential (primary) hypertension; E11.9 Type 2 diabetes mellitus without complications; Z79.899 Other long term (current) drug therapy; Z79.82 Long term (current) use of aspirin; Z87.891 Personal history of nicotine dependence

== ENCOUNTER → 2021-10-02 | Outpatient (CLI) | payer OTHER | END | disposition home or self-care (01) | LOC: LAB 09:29 | PROVIDERS: ATTEND Urology | DX: N40.1 Benign prostatic hyperplasia with lower urinary tract symptoms (principal); R97.20 Elevated prostate specific antigen [PSA] ==

== ENCOUNTER 2021-10-26 22:22 | Inpatient (IN) | payer OTHER ==
[~2021-10-26] VITALS: Ht 180.3 cm; Wt 80.9 kg
[2021-10-26 22:28] VITALS: BP 117/64
[2021-10-26 23:03] LABS: BASO % 0.4 % (0.0-1.0); EOS # 0.1 10*3/uL (0.0-0.4); EOS % 1.1 % (1.0-4.0); HEMATOCRIT 24.6 % (42.0-52.0); LYMPH # 0.3 10*3/uL (1.3-4.4); LYMPH % 2.6 % (27.0-41.0); MEAN CELL VOLUME 90.4 fl (80.0-94.0); MEAN CORPUSCULAR HGB 28.3 pg (27.0-31.0); MEAN CORPUSCULAR HGB CONC 31.3 g/dl (33.0-37.0); MEAN PLATELET VOLUME 9.1 fl (9.6-12.3); MONO # 0.8 10*3/uL (0.1-1.0); MONO % 7.5 % (3.0-9.0); NEUT # 9.5 10*3/uL (2.3-7.9); NEUT % 87.7 % (47.0-73.0); PLATELET COUNT AUTOMATED 320 10*3/uL (130-400); RED BLOOD COUNT 2.72 10*6/uL (4.50-5.90); RED CELL DISTRI WIDTH 17.5 % (0-14.5); WHITE BLOOD COUNT 10.8 10*3/uL (4.8-10.8)
[2021-10-26 23:19] LABS: CREATININE 2.97 mg/dL (0.70-1.30); POTASSIUM 4.7 mmol/L (3.5-5.1); TOTAL PROTEIN 7.3 gm/dL (6.4-8.2)
[2021-10-26 23:22] LABS: BILIRUBIN Negative (Negative); BLOOD 2+ (Negative); CLARITY Turbid (Clear); COLOR Yellow (Yellow); GLUCOSE 2+ (Negative); KETONE Negative (Negative); LEUKO ESTERASE 3+ (Negative); NITRITE Negative (Negative); PH 6.5 (4.5-8.0); UROBILINOGEN 0.2 E.U./dl (0.0-1.0)
[2021-10-26 23:37] LABS: WBC TNTC wbc/hpf (0-5)
[2021-10-27 00:50] VITALS: BP 132/69
[2021-10-27] MEDS ORDERED: JARDIANCE10 MG PO (01:25)
[2021-10-27 06:26] LABS: BASO % 0.3 % (0.0-1.0); EOS # 0.1 10*3/uL (0.0-0.4); HEMATOCRIT 24.5 % (42.0-52.0); LYMPH # 0.4 10*3/uL (1.3-4.4); LYMPH % 3.9 % (27.0-41.0); MEAN CELL VOLUME 89.7 fl (80.0-94.0); MEAN CORPUSCULAR HGB 28.6 pg (27.0-31.0); MEAN CORPUSCULAR HGB CONC 31.8 g/dl (33.0-37.0); MEAN PLATELET VOLUME 10.1 fl (9.6-12.3); MONO # 0.6 10*3/uL (0.1-1.0); MONO % 6.6 % (3.0-9.0); NEUT # 8.1 10*3/uL (2.3-7.9); NEUT % 87.4 % (47.0-73.0); PLATELET COUNT AUTOMATED 353 10*3/uL (130-400); RED BLOOD COUNT 2.73 10*6/uL (4.50-5.90); RED CELL DISTRI WIDTH 17.7 % (0-14.5); WHITE BLOOD COUNT 9.3 10*3/uL (4.8-10.8)
[2021-10-27 08:00] VITALS: BP 137/58
[2021-10-27 12:00] VITALS: BP 124/50
[2021-10-27 16:00] VITALS: BP 123/63
[2021-10-27 20:00] VITALS: BP 120/60
[2021-10-28] VITALS (11 sets, daily range): BP systolic 114–135; BP diastolic 50–74
[2021-10-28 06:38] LABS: HEMATOCRIT 22.8 % (42.0-52.0); MEAN CELL VOLUME 91.2 fl (80.0-94.0); MEAN CORPUSCULAR HGB 27.2 pg (27.0-31.0); MEAN CORPUSCULAR HGB CONC 29.8 g/dl (33.0-37.0); MEAN PLATELET VOLUME 9.9 fl (9.6-12.3); PLATELET COUNT AUTOMATED 300 10*3/uL (130-400); RED CELL DISTRI WIDTH 17.8 % (0-14.5); WHITE BLOOD COUNT 8.9 10*3/uL (4.8-10.8)
[2021-10-28 06:52] LABS: MANUAL DIFF REFLEX YES
[2021-10-28 07:04] LABS: CREATININE 3.08 mg/dL (0.70-1.30); POTASSIUM 4.5 mmol/L (3.5-5.1)
[2021-10-28 07:10] LABS: FREE T4 1.26 ng/dl (0.76-1.46); THYROID STIM HORMONE (HS) 1.05 uIU/ml (0.358-4.75); TOTAL PROTEIN 6.6 gm/dL (6.4-8.2)
[2021-10-28 07:25] LABS: TOTAL CELLS COUNTED 100 #CELLS
[2021-10-28 07:26] LABS: BURR CELLS FEW; PLATELET SUFFICIENCY NORMAL (NORMAL); POLYCHROMASIA SLIGHT; ROULEAUX SLIGHT
[2021-10-28 07:27] LABS: OVALOCYTES FEW
[2021-10-28 13:43] LABS: BASO % 0.3 % (0.0-1.0); EOS # 0.3 10*3/uL (0.0-0.4); EOS % 2.7 % (1.0-4.0); HEMATOCRIT 25.5 % (42.0-52.0); LYMPH # 0.4 10*3/uL (1.3-4.4); MEAN CELL VOLUME 92.4 fl (80.0-94.0); MEAN CORPUSCULAR HGB 27.5 pg (27.0-31.0); MEAN CORPUSCULAR HGB CONC 29.8 g/dl (33.0-37.0); MEAN PLATELET VOLUME 9.4 fl (9.6-12.3); MONO # 0.9 10*3/uL (0.1-1.0); MONO % 9.5 % (3.0-9.0); NEUT # 7.9 10*3/uL (2.3-7.9); NEUT % 82.9 % (47.0-73.0); PLATELET COUNT AUTOMATED 294 10*3/uL (130-400); RED BLOOD COUNT 2.76 10*6/uL (4.50-5.90); RED CELL DISTRI WIDTH 17.3 % (0-14.5); WHITE BLOOD COUNT 9.6 10*3/uL (4.8-10.8)
[2021-10-29] VITALS: BP 137/61
[2021-10-29 06:12] LABS: BASO % 0.4 % (0.0-1.0); EOS # 0.3 10*3/uL (0.0-0.4); EOS % 3.4 % (1.0-4.0); HEMATOCRIT 25.8 % (42.0-52.0); LYMPH # 0.3 10*3/uL (1.3-4.4); MEAN CELL VOLUME 90.2 fl (80.0-94.0); MEAN PLATELET VOLUME 9.8 fl (9.6-12.3); MONO # 0.9 10*3/uL (0.1-1.0); MONO % 10.3 % (3.0-9.0); NEUT # 6.7 10*3/uL (2.3-7.9); NEUT % 81.2 % (47.0-73.0); PLATELET COUNT AUTOMATED 310 10*3/uL (130-400); RED BLOOD COUNT 2.86 10*6/uL (4.50-5.90); RED CELL DISTRI WIDTH 17.3 % (0-14.5); WHITE BLOOD COUNT 8.3 10*3/uL (4.8-10.8)
[2021-10-29 06:21] LABS: CREATININE 3.18 mg/dL (0.70-1.30)
[2021-10-29 08:00] VITALS: BP 122/59
[2021-10-29 12:00] VITALS: BP 119/69
[2021-10-29 16:00] VITALS: BP 160/53
[2021-10-29 20:00] VITALS: BP 142/63
[2021-10-30] VITALS (8 sets, daily range): BP systolic 107–155; BP diastolic 54–76
[2021-10-30 06:09] LABS: CREATININE 2.96 mg/dL (0.70-1.30); POTASSIUM 3.9 mmol/L (3.5-5.1)
[2021-10-30 06:22] LABS: BASO % 0.4 % (0.0-1.0); EOS # 0.2 10*3/uL (0.0-0.4); EOS % 2.5 % (1.0-4.0); LYMPH # 0.4 10*3/uL (1.3-4.4); MEAN CELL VOLUME 90.3 fl (80.0-94.0); MEAN CORPUSCULAR HGB 27.4 pg (27.0-31.0); MEAN CORPUSCULAR HGB CONC 30.4 g/dl (33.0-37.0); MEAN PLATELET VOLUME 9.9 fl (9.6-12.3); MONO # 0.9 10*3/uL (0.1-1.0); MONO % 11.5 % (3.0-9.0); NEUT # 6.5 10*3/uL (2.3-7.9); NEUT % 79.1 % (47.0-73.0); PLATELET COUNT AUTOMATED 350 10*3/uL (130-400); RED CELL DISTRI WIDTH 17.2 % (0-14.5); WHITE BLOOD COUNT 8.2 10*3/uL (4.8-10.8)
[2021-10-30 10:54] LABS: VITAMIN D, 25-HYDROXY 78.4 ng/mL (30-100)
[2021-10-31] VITALS: BP 133/68
[2021-10-31 06:22] LABS: BASO % 0.4 % (0.0-1.0); EOS # 0.2 10*3/uL (0.0-0.4); EOS % 1.8 % (1.0-4.0); HEMATOCRIT 28.4 % (42.0-52.0); LYMPH # 0.4 10*3/uL (1.3-4.4); LYMPH % 4.7 % (27.0-41.0); MEAN CELL VOLUME 90.4 fl (80.0-94.0); MEAN CORPUSCULAR HGB 27.1 pg (27.0-31.0); MEAN CORPUSCULAR HGB CONC 29.9 g/dl (33.0-37.0); MONO # 0.8 10*3/uL (0.1-1.0); MONO % 8.9 % (3.0-9.0); NEUT # 7.8 10*3/uL (2.3-7.9); NEUT % 82.6 % (47.0-73.0); PLATELET COUNT AUTOMATED 357 10*3/uL (130-400); RED BLOOD COUNT 3.14 10*6/uL (4.50-5.90); RED CELL DISTRI WIDTH 17.4 % (0-14.5); WHITE BLOOD COUNT 9.4 10*3/uL (4.8-10.8)
[2021-10-31 06:42] LABS: POTASSIUM 3.8 mmol/L (3.5-5.1)
[2021-10-31 06:47] LABS: CREATININE 3.06 mg/dL (0.70-1.30)
[2021-10-31 08:00] VITALS: BP 144/67
[2021-10-31 12:00] VITALS: BP 144/67
[2021-10-31 16:00] VITALS: BP 131/60
[2021-10-31 20:00] VITALS: BP 130/68
[2021-11-01] VITALS: BP 125/65
[2021-11-01 05:58] LABS: CREATININE 2.18 mg/dL (0.70-1.30); POTASSIUM 4.3 mmol/L (3.5-5.1)
[2021-11-01 06:24] LABS: HEMATOCRIT 24.5 % (42.0-52.0); MEAN CELL VOLUME 89.7 fl (80.0-94.0); MEAN CORPUSCULAR HGB 27.5 pg (27.0-31.0); MEAN CORPUSCULAR HGB CONC 30.6 g/dl (33.0-37.0); MEAN PLATELET VOLUME 10.3 fl (9.6-12.3); PLATELET COUNT AUTOMATED 276 10*3/uL (130-400); RED BLOOD COUNT 2.73 10*6/uL (4.50-5.90); RED CELL DISTRI WIDTH 17.3 % (0-14.5); WHITE BLOOD COUNT 6.6 10*3/uL (4.8-10.8)
[2021-11-01 06:26] LABS: MANUAL DIFF REFLEX YES
[2021-11-01 07:30] LABS: BASOPHILS 2 % (0-1); BURR CELLS FEW; OVALOCYTES FEW; PLATELET SUFFICIENCY NORMAL (NORMAL); POLYCHROMASIA SLIGHT; TOTAL CELLS COUNTED 100 #CELLS; TOXIC GRANULATION SLIGHT
[2021-11-01 08:00] VITALS: BP 115/54
[2021-11-01] MEDS ORDERED: PANTOPRAZOLE SO20 MG PO (11:23)
[2021-11-01 12:00] VITALS: BP 133/70
[2021-11-01] MEDS ORDERED: FLUCONAZOLE100 MG PO (13:58)
== END 2021-11-01 12:47 | disposition home health service (06) | DRG 689 ==
LOC: ED 22:22 → 4E 23:47 → EDHOLD 23:47 → 4E 10-27 00:02
PROVIDERS: Internal Medicine; Student in an Organized Health Care Education/Training Program; ADMIT Student in an Organized Health Care Education/Training Program; ATTEND Student in an Organized Health Care Education/Training Program
PROC: 30233N1 Transfusion of Nonautologous Red Blood Cells into Peripheral Vein, Percutaneous Approach (ICD-10-PCS; principal; 2021-10-28)
PROC: 0DJ08ZZ Inspection of Upper Intestinal Tract, Via Natural or Artificial Opening Endoscopic (ICD-10-PCS; 2021-10-30)
PROC: 0DJD8ZZ Inspection of Lower Intestinal Tract, Via Natural or Artificial Opening Endoscopic (ICD-10-PCS; 2021-10-30)
DX: N30.00 Acute cystitis without hematuria (principal); N17.0 Acute kidney failure with tubular necrosis; E87.1 Hypo-osmolality and hyponatremia; E44.0 Moderate protein-calorie malnutrition; I12.9 Hypertensive chronic kidney disease with stage 1 through stage 4 chronic kidney disease, or unspecified chronic kidney disease; E11.22 Type 2 diabetes mellitus with diabetic chronic kidney disease; E11.65 Type 2 diabetes mellitus with hyperglycemia; N18.9 Chronic kidney disease, unspecified; C61 Malignant neoplasm of prostate; D64.9 Anemia, unspecified; E78.5 Hyperlipidemia, unspecified; S91.302A Unspecified open wound, left foot, initial encounter; Z96.653 Presence of artificial knee joint, bilateral; E87.8 Other disorders of electrolyte and fluid balance, not elsewhere classified; L97.529 Non-pressure chronic ulcer of other part of left foot with unspecified severity; Z90.49 Acquired absence of other specified parts of digestive tract; Z95.0 Presence of cardiac pacemaker; Z87.891 Personal history of nicotine dependence; Z80.42 Family history of malignant neoplasm of prostate; Z82.3 Family history of stroke; X58.XXXA Exposure to other specified factors, initial encounter; Y93.89 Activity, other specified; Y92.89 Other specified places as the place of occurrence of the external cause; Y99.8 Other external cause status; Z68.24 Body mass index [BMI] 24.0-24.9, adult

== ENCOUNTER 2021-11-21 16:21 | Emergency (ER) | payer OTHER ==
[~2021-11-21] VITALS: Ht 190.5 cm; Wt 78.5 kg
[~2021-11-21 16:21] MED LIST changes: +FLUCONAZOLE100 MG PO; +JARDIANCE10 MG PO; +PANTOPRAZOLE SO20 MG PO
[2021-11-21 18:00] LABS: BASO % 0.2 % (0.0-1.0); EOS # 0.1 10*3/uL (0.0-0.4); EOS % 0.5 % (1.0-4.0); HEMATOCRIT 29.1 % (42.0-52.0); LYMPH # 0.4 10*3/uL (1.3-4.4); LYMPH % 2.9 % (27.0-41.0); MEAN CELL VOLUME 88.4 fl (80.0-94.0); MEAN CORPUSCULAR HGB 27.7 pg (27.0-31.0); MEAN CORPUSCULAR HGB CONC 31.3 g/dl (33.0-37.0); MEAN PLATELET VOLUME 9.4 fl (9.6-12.3); MONO # 0.9 10*3/uL (0.1-1.0); MONO % 6.5 % (3.0-9.0); NEUT # 12.3 10*3/uL (2.3-7.9); PLATELET COUNT AUTOMATED 262 10*3/uL (130-400); RED BLOOD COUNT 3.29 10*6/uL (4.50-5.90); RED CELL DISTRI WIDTH 18.6 % (0-14.5); WHITE BLOOD COUNT 13.8 10*3/uL (4.8-10.8)
[2021-11-21 18:02] LABS: BILIRUBIN Negative (Negative); BLOOD 1+ (Negative); CLARITY Turbid (Clear); COLOR Yellow (Yellow); GLUCOSE 3+ (Negative); KETONE Negative (Negative); LEUKO ESTERASE 3+ (Negative); NITRITE Negative (Negative); PH 6.5 (4.5-8.0); SPECIFIC GRAVITY 1.015 (1.001-1.030); UROBILINOGEN 0.2 E.U./dl (0.0-1.0)
[2021-11-21 18:19] LABS: CREATININE 2.33 mg/dL (0.70-1.30); POTASSIUM 4.3 mmol/L (3.5-5.1); TOTAL PROTEIN 7.3 gm/dL (6.4-8.2)
[2021-11-21 18:38] LABS: BACTERIA 2+; EPITHELIAL CELLS 0-2; WBC TNTC wbc/hpf (0-5)
[2021-11-21] MEDS ORDERED: VIBRAMYCIN100 MG PO (20:15)
[2021-11-26] MEDS ORDERED: IRON325 M3 PO (13:03)
[2021-11-26] MEDS ORDERED: AMOXICILLIN500 M3 PO (13:03)
== END 2021-11-21 21:26 | disposition home or self-care (01) ==
LOC: ED 16:21
PROVIDERS: Nurse Practitioner Family
DX: N39.498 Other specified urinary incontinence (principal); R30.0 Dysuria; Z87.891 Personal history of nicotine dependence; Z90.49 Acquired absence of other specified parts of digestive tract; Z79.899 Other long term (current) drug therapy

== ENCOUNTER 2021-11-26 14:51 | Inpatient (IN) | payer OTHER ==
[~2021-11-26] VITALS: Ht 180.3 cm; Wt 85.8 kg
[~2021-11-26 14:51] MED LIST changes: +AMOXICILLIN500 M3 PO; +IRON325 M3 PO; +VIBRAMYCIN100 MG PO
[2021-11-26 17:02] VITALS: BP 145/84
[2021-11-26 19:06] VITALS: BP 141/82
[2021-11-26 19:14] LABS: HEMATOCRIT 27.1 % (42.0-52.0); MANUAL DIFF REFLEX YES; MEAN CELL VOLUME 94.4 fl (80.0-94.0); MEAN CORPUSCULAR HGB 27.9 pg (27.0-31.0); MEAN CORPUSCULAR HGB CONC 29.5 g/dl (33.0-37.0); MEAN PLATELET VOLUME 9.6 fl (9.6-12.3); PLATELET COUNT AUTOMATED 164 10*3/uL (130-400); RED BLOOD COUNT 2.87 10*6/uL (4.50-5.90); RED CELL DISTRI WIDTH 19.1 % (0-14.5); WHITE BLOOD COUNT 9.6 10*3/uL (4.8-10.8)
[2021-11-26 19:28] LABS: ACT PARTIAL THROMBO TIME 31.3 SECONDS (20.0-32.1)
[2021-11-26 19:29] LABS: CREATININE 1.82 mg/dL (0.70-1.30); POTASSIUM 4.3 mmol/L (3.5-5.1); TOTAL PROTEIN 7.3 gm/dL (6.4-8.2)
[2021-11-26 19:35] LABS: PLATELET SUFFICIENCY NORMAL (NORMAL); POLYCHROMASIA SLIGHT; TOTAL CELLS COUNTED 100 #CELLS
[2021-11-26 19:37] LABS: BURR CELLS MODERATE
[2021-11-26 20:03] VITALS: BP 135/72
[2021-11-26 23:46] VITALS: BP 125/81
[2021-11-27 02:48] VITALS: BP 124/72
[2021-11-27 03:10] VITALS: BP 137/86
[2021-11-27 06:46] LABS: HEMATOCRIT 25.2 % (42.0-52.0); MEAN CELL VOLUME 93.7 fl (80.0-94.0); MEAN CORPUSCULAR HGB 28.3 pg (27.0-31.0); MEAN CORPUSCULAR HGB CONC 30.2 g/dl (33.0-37.0); MEAN PLATELET VOLUME 10.1 fl (9.6-12.3); PLATELET COUNT AUTOMATED 160 10*3/uL (130-400); RED BLOOD COUNT 2.69 10*6/uL (4.50-5.90); RED CELL DISTRI WIDTH 19.4 % (0-14.5); WHITE BLOOD COUNT 8.1 10*3/uL (4.8-10.8)
[2021-11-27 06:52] LABS: CREATININE 1.71 mg/dL (0.70-1.30); POTASSIUM 4.2 mmol/L (3.5-5.1); TOTAL PROTEIN 6.7 gm/dL (6.4-8.2)
[2021-11-27 06:53] LABS: MANUAL DIFF REFLEX YES
[2021-11-27 07:40] LABS: BURR CELLS FEW; PLATELET SUFFICIENCY NORMAL (NORMAL); POLYCHROMASIA SLIGHT; TOTAL CELLS COUNTED 100 #CELLS
[2021-11-27 08:00] VITALS: BP 157/79
[2021-11-27 11:58] VITALS: BP 136/73
[2021-11-27 16:00] VITALS: BP 138/66
[2021-11-27 20:00] VITALS: BP 137/71
[2021-11-28] VITALS: BP 145/84
[2021-11-28 06:42] LABS: CREATININE 1.53 mg/dL (0.70-1.30); POTASSIUM 4.8 mmol/L (3.5-5.1)
[2021-11-28 06:44] LABS: HEMATOCRIT 23.6 % (42.0-52.0); MEAN CELL VOLUME 94.8 fl (80.0-94.0); MEAN CORPUSCULAR HGB 28.1 pg (27.0-31.0); MEAN CORPUSCULAR HGB CONC 29.7 g/dl (33.0-37.0); MEAN PLATELET VOLUME 10.1 fl (9.6-12.3); PLATELET COUNT AUTOMATED 165 10*3/uL (130-400); RED BLOOD COUNT 2.49 10*6/uL (4.50-5.90); RED CELL DISTRI WIDTH 19.7 % (0-14.5); WHITE BLOOD COUNT 8.1 10*3/uL (4.8-10.8)
[2021-11-28 06:53] LABS: MANUAL DIFF REFLEX YES
[2021-11-28 07:19] LABS: POLYCHROMASIA SLIGHT; TOTAL CELLS COUNTED 100 #CELLS
[2021-11-28 07:20] LABS: BURR CELLS FEW; OVALOCYTES FEW; PLATELET SUFFICIENCY NORMAL (NORMAL); TOXIC GRANULATION SLIGHT
[2021-11-28 08:00] VITALS: BP 127/60
[2021-11-28 12:00] VITALS: BP 137/77
[2021-11-28 16:00] VITALS: BP 130/65
[2021-11-28 20:00] VITALS: BP 138/76
[2021-11-29] VITALS: BP 128/67
[2021-11-29 05:48] LABS: CREATININE 1.69 mg/dL (0.70-1.30); TOTAL PROTEIN 6.5 gm/dL (6.4-8.2)
[2021-11-29 06:37] LABS: HEMATOCRIT 24.3 % (42.0-52.0); MEAN CELL VOLUME 94.9 fl (80.0-94.0); MEAN CORPUSCULAR HGB 28.1 pg (27.0-31.0); MEAN CORPUSCULAR HGB CONC 29.6 g/dl (33.0-37.0); MEAN PLATELET VOLUME 9.9 fl (9.6-12.3); PLATELET COUNT AUTOMATED 179 10*3/uL (130-400); RED BLOOD COUNT 2.56 10*6/uL (4.50-5.90); RED CELL DISTRI WIDTH 19.9 % (0-14.5); WHITE BLOOD COUNT 7.2 10*3/uL (4.8-10.8)
[2021-11-29 06:42] LABS: MANUAL DIFF REFLEX YES
[2021-11-29 07:17] LABS: BASOPHILS 1 % (0-1); OVALOCYTES FEW; PLATELET SUFFICIENCY NORMAL (NORMAL); TOTAL CELLS COUNTED 100 #CELLS; TOXIC GRANULATION SLIGHT
[2021-11-29 07:18] LABS: POLYCHROMASIA SLIGHT
[2021-11-29 08:00] VITALS: BP 139/74
[2021-11-29 12:00] VITALS: BP 116/67
[2021-11-29 16:00] VITALS: BP 117/68
[2021-11-29 20:00] VITALS: BP 134/71
[2021-11-30] VITALS: BP 128/67
[2021-11-30 05:53] LABS: CREATININE 1.53 mg/dL (0.70-1.30); POTASSIUM 4.9 mmol/L (3.5-5.1)
[2021-11-30 06:28] LABS: HEMATOCRIT 24.9 % (42.0-52.0); MEAN CORPUSCULAR HGB 28.3 pg (27.0-31.0); MEAN CORPUSCULAR HGB CONC 30.1 g/dl (33.0-37.0); PLATELET COUNT AUTOMATED 210 10*3/uL (130-400); RED BLOOD COUNT 2.65 10*6/uL (4.50-5.90); RED CELL DISTRI WIDTH 20.1 % (0-14.5); WHITE BLOOD COUNT 7.1 10*3/uL (4.8-10.8)
[2021-11-30 06:36] LABS: MANUAL DIFF REFLEX YES
[2021-11-30 07:35] LABS: BASOPHILS 1 % (0-1); TOTAL CELLS COUNTED 100 #CELLS
[2021-11-30 07:36] LABS: BURR CELLS FEW; OVALOCYTES FEW; PLATELET SUFFICIENCY NORMAL (NORMAL); POLYCHROMASIA SLIGHT; SCHISTOCYTES FEW; TOXIC GRANULATION SLIGHT
[2021-11-30 08:00] VITALS: BP 100/47
[2021-11-30 12:00] VITALS: BP 106/64
[2021-11-30] MEDS ORDERED: XARE20MG PO (13:47)
[2021-11-30] MEDS ORDERED: LINEZOLID600 MG PO (13:47)
[2021-11-30] MEDS ORDERED: Humalog SQ (13:47)
[2021-11-30] MEDS ORDERED: AMOXICILLIN500 M2 PO (13:47)
[2021-11-30] MEDS ORDERED: XARE15TA PO (13:47)
== END 2021-11-30 16:09 | DRG 300 ==
LOC: ED 14:51 → 4E 11-27 01:20 → EDHOLD 11-27 01:20 → 4E 11-27 02:24
PROVIDERS: Family Medicine; Internal Medicine; Student in an Organized Health Care Education/Training Program; ADMIT Internal Medicine; ATTEND Internal Medicine
DX: I82.413 Acute embolism and thrombosis of femoral vein, bilateral (principal); E44.0 Moderate protein-calorie malnutrition; N39.0 Urinary tract infection, site not specified; N18.4 Chronic kidney disease, stage 4 (severe); I50.42 Chronic combined systolic (congestive) and diastolic (congestive) heart failure; I13.0 Hypertensive heart and chronic kidney disease with heart failure and stage 1 through stage 4 chronic kidney disease, or unspecified chronic kidney disease; E86.0 Dehydration; Z20.822 Contact with and (suspected) exposure to COVID-19; Z96.653 Presence of artificial knee joint, bilateral; E78.5 Hyperlipidemia, unspecified; R31.9 Hematuria, unspecified; E87.8 Other disorders of electrolyte and fluid balance, not elsewhere classified; E11.22 Type 2 diabetes mellitus with diabetic chronic kidney disease; D53.9 Nutritional anemia, unspecified; E11.65 Type 2 diabetes mellitus with hyperglycemia; S91.302A Unspecified open wound, left foot, initial encounter; X58.XXXA Exposure to other specified factors, initial encounter; Y93.89 Activity, other specified; Y92.89 Other specified places as the place of occurrence of the external cause; Z90.49 Acquired absence of other specified parts of digestive tract; Z87.891 Personal history of nicotine dependence; Z80.42 Family history of malignant neoplasm of prostate; Z82.3 Family history of stroke; Y99.8 Other external cause status; Z68.26 Body mass index [BMI] 26.0-26.9, adult